=== PATIENT | male | born 1945 | race Caucasian/White ===

== ENCOUNTER 2017-06-19 09:32 | Emergency (ER) | payer MEDICARE, OTHER ==
[2017-06-19] MEDS ORDERED: Sodium Chloride 0.9% 10 ML Syringe FLUSH PRN (10:10)
[2017-06-19] MEDS ORDERED: Albuterol/Ipratropium 3.0-0.5 MG/3 ML Neb Soln NEB ONE (11:13)
--- NOTE | 2017-06-19 11:30 | EDM.PDOC ---
ED HPI GENERAL MEDICAL PROBLEM - General Chief Complaint: Cardiovascular Problem Stated Complaint: RAPID HEART RATE Time Seen by Provider: 06/19/17 09:50 Source of Information: Reports: Patient, Family, RN Notes Reviewed () - History of Present Illness INITIAL COMMENTS - FREE TEXT/NARRATIVE: 71-year-old male comes in with shortness of breath, cough, nonspecific dizziness and just not feeling well. He does have history of COPD. He does have history of intermittent atrial fibrillation. He has felt some palpitations yesterday and today. At times his heart rate has been out over 100 and to the 110 and 1:15 range. He has no chest pain at this time. He does use oxygen most of the time but not always. He did have some chills yesterday afternoon. Has not been running obvious fever. Cough has been worsening over this past week or 2 now frequently productive of yellowish-green phlegm. He has are traveling. They are headed for [place] with her motor home eventually heading to their home at [facility]. - Related Data Allergies Allergy/AdvReac Type Severity Reaction Status Date / Time bee pollen Allergy Rash Verified 06/19/17 09:50 Iodinated Contrast- Oral and Allergy Rash Verified 06/19/17 09:50 IV Dye Home Meds: Home Meds Diltiazem HCl [Diltiazem 24Hr ER] 240 mg PO DAILY 06/19/17 [History] Furosemide [Lasix] 40 mg PO BID 06/19/17 [History] Insulin Aspart [NovoLOG] 18 unit SUBCUT TID 06/19/17 [History] Insulin Glargine,Hum.Rec.Anlog [Lantus Solostar] 30 unit SQ DAILY 06/19/17 [ History] Levalbuterol HCl [Xopenex] 2 puff INH Q6H PRN 06/19/17 [History] Losartan [Cozaar] 25 mg PO DAILY 06/19/17 [History] Metoprolol Tartrate [Lopressor] 50 mg PO BID 06/19/17 [History] Rosuvastatin Calcium 20 mg PO BEDTIME 06/19/17 [History] Sildenafil Citrate [Sildenafil] 100 mg PO ASDIRECTED PRN 06/19/17 [History] Warfarin [Coumadin] 2 mg PO DAILY 06/19/17 [History] guaiFENesin [Guaifenesin] 400 mg PO BID 06/19/17 [History] guaiFENesin [Robitussin] 2 tsp PO QID PRN 06/19/17 [History] metFORMIN HCl [Metformin HCl] 2 tab PO BID 06/19/17 [History] Past Medical History Cardiovascular History: Reports: Afib Respiratory History: Reports: COPD, Pneumonia, Recurrent, SOB Endocrine/Metabolic History: Reports: Diabetes, Type II - Past Surgical History Cardiovascular Surgical History: Reports: Carotid Stents GI Surgical History: Reports: Hernia, Inguinal Neurological Surgical History: Reports: Lumbar Spine Social & Family History - Tobacco Use Smoking Status *Q: Former Smoker Used Tobacco, but Quit: Yes Month Tobacco Last Used: 2006 - Caffeine Use Caffeine Use: Reports: Coffee - Recreational Drug Use Recreational Drug Use: No ED ROS GENERAL - Review of Systems Review Of Systems: See Below Constitutional: Reports: Chills. Denies: Fever, Diaphoresis HEENT: Denies: Sinus Problem, Throat Pain Respiratory: Reports: Shortness of Breath, Wheezing (occasional), Cough, Sputum (worsening) Cardiovascular: Denies: Chest Pain (yellowish-green) Endocrine: Reports: Fatigue GI/Abdominal: Denies: Abdominal Pain (yesterday and today), Nausea, Vomiting Musculoskeletal: Reports: No Symptoms Skin: Reports: No Symptoms Neurological: Reports: Weakness (mild generalized) ED EXAM, GENERAL - Physical Exam Exam: See Below General Appearance: Alert, No Apparent Distress Eye Exam: Bilateral Eye: PERRL Throat/Mouth: Normal Inspection, Normal Oropharynx Head: Atraumatic. No: Facial Swelling Neck: Supple, Full Range of Motion, Other (no JVD) Respiratory/Chest: Respiratory Distress (mild tachypnea), Rhonchi (mild bilateral base), Wheezing (very mild) Cardiovascular: Tachycardia, Irregularly Irregular GI/Abdominal: Soft, Non-Tender Back Exam: Normal Inspection Extremities: Normal Inspection. No: Pedal Edema, Leg Pain, Increased Warmth, Redness Neurological: Alert, Oriented, No Motor/Sensory Deficits Skin Exam: Warm, Dry, Normal Color EKG INTERPRETATION EKG Date: 06/19/17 Rhythm: A-[place]ib [place]: Normal QRS: Normal ST-T: Normal Course - Vital Signs Last Recorded V/S: Last Vital Signs Temp 96.6 F 06/19/17 09:41 Pulse 103 H 06/19/17 11:49 Resp 27 H 06/19/17 11:49 BP 95/68 06/19/17 11:49 Pulse Ox 88 L 06/19/17 11:49 - Orders/Labs/Meds Orders: Active Orders 24 hr Category Date Time Status EKG 12 Lead [EKG Documentation Completion] [RC] STAT Care 06/19/17 10:09 Active Peripheral IV Care [RC] . DIRECTED Care 06/19/17 10:11 Active RT Aerosol Therapy [RC] ASDIRECTED Care 06/19/17 11:14 Active Chest 1V Frontal [CR] Stat Exams 06/19/17 10:09 Taken Peripheral IV Insertion Adult [OM.PC] Stat Oth 06/19/17 10:11 Ordered Labs: Laboratory Tests 06/19/17 06/19/17 06/19/17 Range/Units 09:41 09:41 09:41 WBC 12.88 H (4.23-9.07) K/mm3 RBC 5.76 (4.63-6.08) M/mm3 Hgb 16.8 (13.7-17.5) gm/L Hct 50.7 (40.1-51.0) % MCV 88.0 (79.0-92.2) fl MCH 29.2 (25.7-32.2) pg MCHC 33.1 (32.2-35.5) g/dl RDW Std Deviation 45.5 H (35.1-43.9) fL Plt Count 241 (163-337) K/mm3 MPV 10.1 (9.4-12.3) fl Neut % (Auto) 82.8 H (34.0-67.9) % Lymph % (Auto) 10.9 L (21.8-53.1) % Mckenzie % (Auto) 5.5 (5.3-12.2) % Eos % (Auto) 0.2 L (0.8-7.0) Baso % (Auto) 0.2 (0.1-1.2) % Neut # (Auto) 10.67 H (1.78-5.38) K/mm3 Lymph # (Auto) 1.41 (1.32-3.57) K/mm3 Mckenzie # (Auto) 0.71 (0.30-0.82) K/mm3 Eos # (Auto) 0.02 L (0.04-0.54) K/mm3 Baso # (Auto) 0.02 (0.01-0.08) K/mm3 PT 22.1 H (8.0-13.0) SECONDS INR 1.94 Sodium 139 (136-145) mEq/L Potassium 3.8 (3.5-5.1) mEq/L Chloride 100 (98-107) mEq/L Carbon Dioxide 28 (21-32) mEq/L Anion Gap 14.8 (5-15) BUN 19 H (7-18) mg/dL Creatinine 1.6 H (0.7-1.3) mg/dL Est Cr Clr Drug Dosing 45.13 mL/min Estimated GFR (MDRD) 43 (>60) mL/min BUN/Creatinine Ratio 11.9 L (14-18) Glucose 310 H (83-115) mg/dL Calcium 9.3 (8.5-10.1) mg/dL Total Bilirubin 1.7 H (0.2-1.0) mg/dL AST 16 (15-37) U/L ALT 29 (16-63) U/L Alkaline Phosphatase 62 (46-116) U/L Troponin I < 0.017 (0.00-0.056) ng/mL NT-Pro-B Natriuret Pep 950 H (0-125) pg/mL Total Protein 7.6 (6.4-8.2) g/dl Albumin 3.4 (3.4-5.0) g/dl Globulin 4.2 gm/dL Albumin/Globulin Ratio 0.8 L (1-2) Meds: Medications Discontinued Medications Generic Name Dose Route Start Last Admin Trade Name Brennonq PRN Reason Stop Dose Admin Albuterol/Ipratropium 3 ml 06/19/17 11:13 06/19/17 11:21 Duoneb 3.0-0.5 Mg/3 Ml NEB 06/19/17 11:14 3 ml ONETIME ONE Administration Sodium Chloride 10 ml 06/19/17 10:10 06/19/17 10:17 Saline Flush FLUSH 10 ml ASDIRECTED PRN Administration Keep Vein Open - Re-Assessments/Exams Free Text/Narrative Re-Assessment/Exam: 06/19/17 14:55. chest x-ray shows scarring and fibrosis down at the right base and to a lesser degree left base, possible infiltrate right lower lung field, white blood count mildly elevated. Symptoms are compatible with early pneumonia. Sats were okay with oxygen what she normally uses. are traveling. He was offered hospital admission but prefers to be treated outpatient. He has been given an albuterol neb treatment. Discharge instructions as documented Departure - Departure Time of Disposition: 11:20 Disposition: Home, Self-Care 01 Condition: Fair Clinical Impression: Pneumonia Qualifiers: Pneumonia type: due to unspecified organism Laterality: right Lung location: lower lobe of lung Qualified Code(s): J18.1 - Lobar pneumonia, unspecified organism Instructions: Community-Acquired Pneumonia, Adult Referrals: PCP,Not In Area [Primary Care Provider] - Forms: ED Department Discharge Additional Instructions: continue current medications, you do have an area of scarring visible right lower lung with probable superimposed pneumonia as well. The Levaquin antibiotic as prescribed for you is good for pneumonia and also exacerbation COPD. Take that once daily for 10 days. Continue to use her oxygen. Continue the diltiazem, metoprolol and other medications as previously prescribed. When your heart is consistently running more than 110-120/m he may take an extra dose of your metoprolol if blood pressure is reading above 100 systolic. Prednisone as prescribed. Follow-up ED if symptoms worsening in any way. Follow up with your regular medical provider for recheck when you get home. - My Orders Last 24 Hours: My Active Orders 06/19/17 10:09 EKG 12 Lead [EKG Documentation Completion] [RC] STAT Chest 1V Frontal [CR] Stat 06/19/17 10:11 Peripheral IV Care [RC] . DIRECTED Peripheral IV Insertion Adult [OM.PC] Stat 06/19/17 11:14 RT Aerosol Therapy [RC] ASDIRECTED - Assessment/Plan Last 24 Hours: My Active Orders 06/19/17 10:09 EKG 12 Lead [EKG Documentation Completion] [RC] STAT Chest 1V Frontal [CR] Stat 06/19/17 10:11 Peripheral IV Care [RC] . DIRECTED Peripheral IV Insertion Adult [OM.PC] Stat 06/19/17 11:14 RT Aerosol Therapy [RC] ASDIRECTED
[2017-06-19 11:51] VITALS: BP 95/68
--- NOTE | 2017-06-20 12:55 | CR ---
Chest: Portable view of the chest was obtained. Comparison: No prior chest x-ray. Interstitial change is seen within both mid and lower lungs. Lungs otherwise are clear. Heart size and mediastinum are normal. Bony structures are grossly intact. Impression: 1. Interstitial changes as noted above. Findings most likely due to pulmonary fibrosis. No prior chest x-ray is available to confirm stability. Diagnostic code #3
== END 2017-06-19 11:49 | disposition home or self-care (01) ==
LOC: JD.ED 09:32
DX: J18.9 Pneumonia, unspecified organism (principal); J44.9 Chronic obstructive pulmonary disease, unspecified; E11.9 Type 2 diabetes mellitus without complications; Z91.030 Bee allergy status; Z79.4 Long term (current) use of insulin; Z79.84 Long term (current) use of oral hypoglycemic drugs; Z91.041 Radiographic dye allergy status; Z87.891 Personal history of nicotine dependence
CPT/HCPCS: 36415; 71010; 80053; 83880; 84484; 85025; 85610; 93005; 94640; 99285; J7050